=== PATIENT | female | born 1980 | race African-American/Black ===

== ENCOUNTER 2019-03-08 10:59 | Emergency (ER) | payer MEDICARE, MEDICAID ==
[~2019-03-08] VITALS: Ht 165.1 cm; Wt 75.0 kg
[2019-03-08 11:11] VITALS: BP 153/95
== END 2019-03-08 11:48 | disposition left against medical advice (07) ==
LOC: ER 10:59
DX: Z53.21 Procedure and treatment not carried out due to patient leaving prior to being seen by health care provider (principal)

== ENCOUNTER 2021-09-10 11:53 | Emergency (ER) | payer MEDICARE, MEDICAID ==
[~2021-09-10] VITALS: Ht 167.6 cm; Wt 75.0 kg
[2021-09-10 12:15] VITALS: BP 135/97
[2021-09-10] MEDS ORDERED: BACITRACIN ZINC OINT UDPKT TOP ONE (12:15)
[2021-09-10] MEDS ORDERED: ACETAMINOPHEN 325MG TABLET PO ONE (12:15)
[2021-09-10] MEDS ORDERED: TETANUS, DIPHTHERIA, PERTUSSIS VAC/PF 0.5ML (>10YR OLD) IM ONE (12:15)
[2021-09-10] MEDS: IBUPROFEN 400MG TABLET PO ONE ×2 (12:15→13:17)
[2021-09-10] MEDS ORDERED: NAPR-681 MT (13:35)
[2021-09-10] MEDS ORDERED: CEPH500T MT (13:35)
== END 2021-09-10 15:18 | disposition home or self-care (01) ==
LOC: ER 11:53
DX: S80.212A Abrasion, left knee, initial encounter (principal); S80.211A Abrasion, right knee, initial encounter; M76.41 Tibial collateral bursitis [Pellegrini-Stieda], right leg; Y04.0XXA Assault by unarmed brawl or fight, initial encounter; Y93.89 Activity, other specified; Y92.89 Other specified places as the place of occurrence of the external cause
CPT/HCPCS: 73562; 90471; 90715; 99283; L1830